=== PATIENT | female | born 1950 | race Two or more races ===

== ENCOUNTER 2024-11-17 13:08 | Day surgery (SDC) | payer MEDICARE, SELFPAY ==
[2024-11-13 16:10] VITALS: BMI 18.6
[2024-11-17 13:39] VITALS: BP 128/72; PULSE 73; RESP 18; TEMP 36.2; O2SAT 99
--- NOTE | 2024-11-17 13:49 | P.PNANES_ITS ---
[facility] Disclaimer: The information contained in this section may have been updated after the patient was seen, as this information can be updated by other users. Medical History (Updated 11/13/24 @ 16:09 by Taty Espino RN) Hypertension Surgical History (Updated 11/13/24 @ 16:09 by Taty Espino RN) H/O right knee surgery Family History (Updated 11/13/24 @ 16:09 by Taty Espino RN) Other No significant family history Social History (Updated 11/13/24 @ 16:08 by Taty Espino RN) Smoking Status: Never smoker alcohol intake: never substance use type: denies use current occupational status: retired Travel in the last 8 weeks: None caffeine: Yes [facility] Anesthesia Checklist Patient Identification Patient Identification: Arm Band and Verbal (Name & ) Structural Data Admitted From: Home Planned Operative Procedure/s: colonoscopy Consent for Planned Operative Procedure(s) Verified: Yes Verified Documents: Surgical Consent NPO Status Verified Time NPO: 00:00 Additional verifications Patient : No Anesthesia Reactions: No Hx Blood Transfusions: No Blood Transfusion Reaction: No Cephalosporin Allergy: No Previous Colonoscopy: Yes Cardiovascular Assessment Heart Sounds: S1 & S2 Pulse Strength: Baseline Pulse Rhythm: Regular Airway Assessment Mallampati Score:: Class I C-Spine Mobility Assessed: Yes TMJ Mobility Assessed: Yes Dentition: Good Dentition Neurological Assessment Level of Consciousness: Awake, Alert and Appropriate Hx Seizures: No Numbness or tingling in extremities: No Anesthesia Plan Anesthesia Risk discussed: Yes Anesthesia Plan: Verified ASA Class: II Anesthesia Type: MAC
[2024-11-17 14:32] VITALS: O2SAT 100
--- NOTE | 2024-11-17 14:39 | P.HP_ITS ---
History of Present Illness *Admission Date: 11/17/24 *Reason for visit:: Screening/surveillance *History of present illness: Mrs. Patel is a 74-year-old female who is here for follow-up screening/surveillance colonoscopy. The patient's last colonoscopy was 10 years ago ([facility] in [place]). The examination is deemed medically necessary for surveillance colonoscopy. The patient has been seen, interviewed and examined prior to the procedure by both myself and the anesthesia provider. [facility] Disclaimer: The information contained in this section may have been updated after the patient was seen, as this information can be updated by other users. Medical History (Updated 11/17/24 @ 14:40 by Leighton Mir II, MD) Hypertension Surgical History (Updated 11/13/24 @ 16:09 by Taty Espino RN) H/O right knee surgery Family History (Updated 11/13/24 @ 16:09 by Taty Espino RN) Other No significant family history Social History (Updated 11/17/24 @ 13:50 by Adin Shah CRNA) Smoking Status: Never smoker alcohol intake: never substance use type: denies use current occupational status: retired Travel in the last 8 weeks: None caffeine: Yes Have you lived/traveled outside [place] in past 30 days?: No Contact w/someone who lives/traveled outside US past 30 days?: No Exposure to someone with infectious disease in past 14 days?: No Do you have a fever (greater than 100.4 F or 38 C)?: No Have you tested positive for COVID-19: No Exposed to someone with COVID-19 in past 14 days?: No Do you have a sore throat?: No Do you have a cough?: No Do you have any weakness?: No Do you have any diarrhea?: No Are you experiencing any unusual bleeding?: No Do you have any muscle aches/pain?: No Do you have any abdominal pain?: No Are you experiencing loss of taste or smell?: No Review of Systems Review of Systems Review of systems (narrative): Negative *Cardiovascular Comments: Negative *Gastrointestinal Comments: Negative *Genitourinary Comments: Negative *Musculoskeletal Comments: Negative *Neurologic Comments: Negative Meds Home Medications and Allergies Home Medications ?Medication ?Instructions ?Recorded ?Confirmed ?Type sodium,potassium,mag sulfates 17.5 See Rx Instructions PO .COMPLEX 11/06/24 Rx gram-3.13 gram-1.6 gram oral soln #354 mL (Suprep Bowel Prep Kit) fluoxetine 40 mg capsule (Prozac) 40 mg PO DAILY 11/13/24 11/13/24 History lisinopril 10 mg tablet 10 mg PO DAILY 11/13/24 11/13/24 History New Prescriptions to Start Prescriptions: Allergies Allergy/AdvReac Type Severity Reaction Status Date / Time No Known Allergies Allergy Verified 11/13/24 16:07 Exam Data for Last 24 hours Vital signs and Labs for Last 24 Hours: Temp Pulse Resp BP Pulse Ox O2 Del Method O2 Flow Rate 97.1 F L 73 18 128/72 99 Nasal Cannula 5 11/17/24 13:39 11/17/24 13:39 11/17/24 13:39 11/17/24 13:39 11/17/24 13:39 11/17/24 14:32 11/17/24 14:32 *Routine HEENT Exam Head: Present normocephalic Eye: Present EOMI and PERRL ENT: Present mucous membranes moist *Routine Neck Exam Neck: Present supple *Routine Respiratory Exam Respiratory: Present CTA bilaterally *Routine Cardiovascular Exam Cardiovascular: Present RRR *Routine Abdominal Exam Abdominal: Present soft and normoactive bowel sounds; Absent tenderness *Routine Rectal Exam Rectal:: deferred *Routine Genitalia Exam Genitalia:: deferred *Routine Extremities Exam Extremities: Absent cyanosis, clubbing or edema *Routine Skin Exam Skin: Present warm; Absent rash *Routine Neurological Exam Neurological: Present alert and oriented X3 Assessment and Plan *Assessment and plan (1) Screening for colon cancer: Status: Acute Category: Medical Code(s): Z12.11 - Encounter for screening for malignant neoplasm of colon Plan A/P: 1. Screening for colon cancer/surveillance is the preprocedural diagnosis. The patient's last colonoscopy was 10 years ago. The patient will be anesthetized/sedated using MAC sedation. The patient has been seen and examine d. Cardiac and lung assessment prior to the examination is stable. Proceed with planned screening/surveillance colonoscopy
--- NOTE | 2024-11-17 14:41 | HMH.PROCNOTE ---
[facility] Procedure Note Date: 11/17/24 Time: 14:55 Procedure Note:: Colonoscopy Procedure Report: Colonoscopy with cold biopsies Endoscopist: Leighton Mir II, MD Referring physician: Kamila Mandel MD, [address] [facility] [address] [facility] [address] [place] [address] Date of Procedure: November 17, 2024 Equipment: Olympus 190 variable stiffness pediatric colonoscope Sedation: MAC sedation Indication: Mrs. Patel is a 74-year-old female who is here for follow-up surveillance/screening colonoscopy. The patient's last colonoscopy was 10 years ago (at [facility]) and was normal. She reports no abdominal pain, weight loss, change in her bowel habits or rectal bleeding. She reports no family history of colon cancer. Procedure: Prior to the procedure, a history and physical exam was performed, and patient's medications and allergies were reviewed. The risks, benefits and alternatives of the sedation and procedure were discussed with the patient. All questions were answered and informed consent was obtained. The patient was brought to the procedure room. Patient identification and proposed procedure were verified by the physician and the nurse. The patient was placed in a left lateral decubitus position and the scope was passed under direct vision. Throughout the procedure, the patient's blood pressure, pulse, and oxygen saturations were monitored continuously. The colonoscopy was accomplished without difficulty. The patient tolerated the procedure well. Findings: On digital rectal examination there was normal rectal tone. There were no external hemorrhoids. The colonoscope was introduced through the anal canal to the rectum and advanced to the cecum. The ileocecal valve and appendiceal orifice were identified. The scope was advanced a short distance into the ileum which appeared grossly normal. The scope was then withdrawn into the colon. There was mild reticular mucosal pattern in the right colon so biopsies were obtained to rule out any microscopic colitis. The cecum, ascending, transverse, descending, sigmoid and rectum were grossly normal. There were no mucosal abnormalities identified. Upon retroflexion within the rectum there were grade 1 internal hemorrhoids. The preparation was excellent throughout with [place] Preparation Score of 9. The cecal time was 12 minutes. Impression: 1. Normal colonoscopy with intubation of the terminal ileum Plan: The patient should not require any further preventive/surveillance colonoscopy.
[2024-11-17 14:59] VITALS: BP 89/60; PULSE 68; RESP 17; O2SAT 97
[2024-11-17 15:09] VITALS: BP 103/48; PULSE 70; RESP 18; O2SAT 97
[2024-11-17 15:19] VITALS: BP 109/71; PULSE 65; RESP 18; O2SAT 98
[2024-11-17 15:29] VITALS: BP 113/74; PULSE 73; RESP 18; O2SAT 99
== END 2024-11-17 15:30 | disposition home or self-care (01) ==
PROVIDERS: Visit Provider Internal Medicine Gastroenterology
PROC: 0DJD8ZZ Inspection of Lower Intestinal Tract, Via Natural or Artificial Opening Endoscopic (ICD-10-PCS; CPT 45378; principal; 2024-11-17 14:30)
DX: K64.0 First degree hemorrhoids (principal); Z12.11 Encounter for screening for malignant neoplasm of colon
CPT/HCPCS: 45380